=== PATIENT | female | born 2000 | race African-American/Black ===

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

== ENCOUNTER 2023-06-06 09:56 | Day surgery (SDC) | payer OTHER ==
[2023-06-06] MEDS ORDERED: Acetaminophen 500 MG TAB ONE (10:28)
[2023-06-06] MEDS ORDERED: Acetaminophen 500 MG TAB PO SCH (10:30)
[2023-06-06] MEDS ORDERED: Iron Sucrose Complex 500 MG in Sodium Chloride 0.9% 250 ML 250 ML IVPB SCH (10:45)
== END 2023-06-06 15:30 | disposition home or self-care (01) ==
LOC: CSHSDC/OP 09:56
PROVIDERS: ATTEND Student in an Organized Health Care Education/Training Program
DX: O99.013 Anemia complicating pregnancy, third trimester (principal); D64.9 Anemia, unspecified; Z3A.00 Weeks of gestation of pregnancy not specified
CPT/HCPCS: 96365; 96366; J1756; J7050

== ENCOUNTER 2023-06-20 19:00 | Inpatient (IN) | payer OTHER ==
[2023-06-21 10:39] LABS: Hematocrit 34.1 % (34.9-44.5); Hemoglobin 10.9 g/dL (12.0-15.5); Mean Corpuscular Hemoglobin 26.3 pg (27.0-33.0); Mean Corpuscular Volume 82.4 fl (81.6-98.3); Mean Platelet Volume 9.7 fl (7.4-10.4); Platelet Count 167 10x3/uL (150-450); RBC Distribution Width 22.3 % (11.5-14.5); Red Blood Cell (RBC) Count 4.14 10x6/uL (3.90-5.03); White Blood Cell (WBC) Count 6.2 10x3/uL (3.5-10.5)
[2023-06-21 11:20] LABS: Syphilis Antibody Nonreactive (Nonreactive)
[2023-06-21 11:21] LABS: HBSAg Index 0.16 S/CO (0-0.99); Hep B Surf Ag Non-Reactive S/CO (NonReactive)
[2023-06-22 06:15] VITALS: BMI 31.4
[2023-06-22] MEDS ORDERED: Promethazine HCl 25 MG/ML VIAL IM PRN ×2 (06:19→06:57)
[2023-06-22] MEDS ORDERED: Ondansetron PF 4 MG/2 ML Vial IVP PRN ×3 (06:19→06:57)
[2023-06-22] MEDS ORDERED: hydrALAZINE 20 MG/ML VIAL SLOW IVP PRN ×2 (06:19→14:50)
[2023-06-22] MEDS ORDERED: Bicitra 30 ML UDCUP PO PRN (06:19)
[2023-06-22] MEDS ORDERED: Famotidine/PF 20 mg/2ml Vial SLOW IVP PRN (06:19)
[2023-06-22] MEDS ORDERED: CEFAZOLIN 2 GM in Sodium Chloride 0.9% 100 ML IVPB SCH (06:30)
[2023-06-22] MEDS ORDERED: Oxytocin 30 units/NS 500 ML 500 ML IV SCH (06:30)
[2023-06-22] MEDS ORDERED: Ketorolac Tromethamine 30 MG (1 mL) VIAL ONE (06:45)
[2023-06-22] MEDS ORDERED: Dexamethasone 4 mg/ml Vial ONE (06:45)
[2023-06-22] MEDS ORDERED: Phenylephrine 40 MG/NS 250 ML 250 ML ONE (06:45)
[2023-06-22] MEDS ORDERED: Oxytocin 10 UNITS/ML VIAL ONE (06:45)
[2023-06-22] MEDS ORDERED: Glycopyrrolate 0.2 MG/ML 5 ML SYRINGE ONE (06:45)
[2023-06-22] MEDS ORDERED: PHENYLEPHRINE-NS 100 MCG/ML 10 ML SYRINGE ONE (06:45)
[2023-06-22] MEDS ORDERED: Ondansetron PF 4 MG/2 ML Vial ONE (06:45)
[2023-06-22] MEDS ORDERED: ePHEDrine Sulfate 50 MG/10 ML VIAL ONE (06:46)
[2023-06-22] MEDS ORDERED: Morphine PF 10 MG/10 ML VIAL ONE (06:46)
[2023-06-22] MEDS ORDERED: fentaNYL 50 mcg/mL 1 mL Vial SLOW IVP PRN (06:57)
[2023-06-22] MEDS ORDERED: Meperidine HCl/PF 25 MG (1 mL) VIAL SLOW IVP PRN (06:57)
[2023-06-22] MEDS ORDERED: Promethazine HCl 25 MG SUPP PR PRN (06:57)
[2023-06-22] MEDS ORDERED: Ketorolac Tromethamine 30 MG (1 mL) VIAL IVP PRN (06:57)
[2023-06-22] MEDS ORDERED: Moisturizing Cream (Eucerin) 113 GM JAR TOP PRN (06:57)
[2023-06-22] MEDS ORDERED: Naloxone HCl 0.4 mg/ml Vial IVP PRN ×2 (06:57)
[2023-06-22] MEDS ORDERED: Naloxone HCl 0.4 mg/ml Vial IV PRN (06:57)
[2023-06-22] MEDS ORDERED: Communication Order-Pharmacy FS SCH (07:00)
[2023-06-22] MEDS ORDERED: Ketorolac Tromethamine 30 MG (1 mL) VIAL IVP SCH (07:00)
[2023-06-22] MEDS: Lactated Ringer's 1,000 ML IV SCH (07:11)
[2023-06-22] MEDS ORDERED: Phytonadione Neonatal 1 MG/0.5 ML AMP ONE (08:02)
[2023-06-22] MEDS ORDERED: Erythromycin Base 0.5% Oint 1 GM TUBE ONE (08:02)
[2023-06-22] MEDS: diphenhydrAMINE 50 MG/ML VIAL IVP PRN ×2 (10:33→15:01)
[2023-06-22] MEDS ORDERED: Methylergonovine 0.2 MG/ML VIAL IM PRN (14:50)
[2023-06-22] MEDS ORDERED: Acetaminophen 325 MG TAB PO PRN (14:50)
[2023-06-22] MEDS ORDERED: Misoprostol 200 MCG TAB PR PRN (14:50)
[2023-06-22] MEDS ORDERED: Lanolin Ointment 7 GM TUBE TOP PRN (14:50)
[2023-06-22] MEDS ORDERED: Boostrix 0.5 ML (Tdap) VIAL (>/=7 yrs of age) IM ONE (14:50)
[2023-06-22] MEDS ORDERED: Prenatal Vitamin 1 TAB PO SCH (16:00)
[2023-06-22] MEDS: HYDROcodone/Acetaminophen 5/325 mg Tablet PO PRN (22:00)
[2023-06-23 04:41] LABS: Hematocrit 28.3 % (34.9-44.5); Hemoglobin 9.2 g/dL (12.0-15.5); Mean Corpuscular HGB CONC 32.5 g/dL (32.0-36.0); Mean Corpuscular Hemoglobin 26.4 pg (27.0-33.0); Mean Corpuscular Volume 81.3 fl (81.6-98.3); Mean Platelet Volume 11.4 fl (7.4-10.4); Platelet Count 177 10x3/uL (150-450); RBC Distribution Width 22.1 % (11.5-14.5); Red Blood Cell (RBC) Count 3.48 10x6/uL (3.90-5.03); White Blood Cell (WBC) Count 10.1 10x3/uL (3.5-10.5)
[2023-06-23] MEDS: HYDROcodone/Acetaminophen 5/325 mg Tablet PO PRN ×3 (06:37→21:44)
[2023-06-23] MEDS: Ibuprofen 800 MG TAB PO SCH ×2 (09:47→21:47)
[2023-06-23] MEDS: Polyethylene Glycol 3350 17 GM Packet PO SCH (09:47)
[2023-06-23] MEDS: Acetaminophen 325 MG TAB PO SCH ×2 (09:48→21:47)
[2023-06-23] MEDS: Ferrous Sulfate 325 MG TAB PO SCH (09:50)
[2023-06-23] MEDS: Prenatal Vitamin 1 TAB PO SCH (09:50)
[2023-06-23] MEDS ORDERED: Ibuprofen 800 MG TAB PO SCH (14:00)
[2023-06-23] MEDS: Lactated Ringer's 1,000 ML IV SCH (21:00)
[2023-06-24] MEDS: Ibuprofen 800 MG TAB PO SCH ×2 (01:13→08:43)
[2023-06-24] MEDS: Acetaminophen 325 MG TAB PO SCH ×2 (01:13→08:44)
[2023-06-24] MEDS: Prenatal Vitamin 1 TAB PO SCH (08:42)
[2023-06-24] MEDS: Ferrous Sulfate 325 MG TAB PO SCH (08:42)
[2023-06-24] MEDS: Polyethylene Glycol 3350 17 GM Packet PO SCH (08:42)
[2023-06-24 08:48] VITALS: BP 118/63; TEMP 98.5
== END 2023-06-24 12:55 | disposition home or self-care (01) | DRG 787 ==
LOC: CSHLD 06-22 05:37 → CSHPP 06-22 10:50
PROVIDERS: ADMIT Family Medicine; ATTEND Family Medicine
PROC: 10D00Z1 Extraction of Products of Conception, Low, Open Approach (ICD-10-PCS; principal; 2023-06-22)
DX: O34.211 Maternal care for low transverse scar from previous cesarean delivery (principal); D62 Acute posthemorrhagic anemia; Z3A.39 39 weeks gestation of pregnancy; Z37.0 Single live birth; Z90.89 Acquired absence of other organs; Z83.3 Family history of diabetes mellitus; O99.02 Anemia complicating childbirth; D64.9 Anemia, unspecified
CPT/HCPCS: 51702; 85027; 86780; 86850; 86900; 86901; 87340; J1100; J1200; J1885; J2274; J2405; J2590; J3490; J7120; S0028